=== PATIENT | female | born 1980 | race Caucasian/White ===

== ENCOUNTER 2019-09-26 06:51 | Emergency (ER) | payer SELFPAY ==
[2019-09-26] MEDS ORDERED: IPRATROPIUM/ALBUTEROL SULFATE 3 ML SOLUTION IH ONE (07:21)
[2019-09-26 07:59] LABS: BASOPHILS % (AUTO) 0.2 % (0.0-5.0); EOSINOPHILS % (AUTO) 3.6 % (0.0-8.0); LYMPHOCYTES % (AUTO) 41.8 % (21.0-51.0); MEAN CORPUSCULAR HEMOGLOBIN 23.9 pg (27.0-33.0); MEAN CORPUSCULAR VOLUME 77.1 fL (79-99); MONOCYTES % (AUTO) 7.6 % (3.0-13.0); NEUTROPHILS % (AUTO) 46.6 % (40.0-77.0); PLATELET COUNT (AUTO) 295 K/uL (130-400); RED BLOOD CELL COUNT(AUTO) 5.06 MIL/uL (4.00-5.50); RED CELL DISTRIBUTION WIDTH 15.2 % (11.0-15.5); WHITE BLOOD COUNT (AUTO) 8.1 K/uL (4.8-10.8)
[2019-09-26 08:10] LABS: CREATININE 0.8 mg/dL (0.5-1.5); POTASSIUM 3.7 mmol/L (3.5-5.1)
[2019-09-26 08:15] LABS: ALBUMIN 3.6 g/dL (3.5-5.0); BILIRUBIN,TOTAL 0.2 mg/dL (0.2-1.0)
[2019-09-26] MEDS ORDERED: METHYLPREDNISOLONE SOD SUCC 125MG/2ML VIAL ONE (08:41)
[2019-09-26] MEDS ORDERED: SODIUM CHLORIDE 0.9% 500ML 500 ML IV ONE (08:42)
== END 2019-09-26 09:06 | disposition home or self-care (01) ==
LOC: EDH 06:51
DX: J45.901 Unspecified asthma with (acute) exacerbation (principal); Z98.890 Other specified postprocedural states; Z72.0 Tobacco use
CPT/HCPCS: 36415; 71045; 80053; 84702; 85025; 94640; 96374; 99284; J2930; J7040

== ENCOUNTER 2025-01-08 09:40 | Emergency (ER) | payer SELFPAY ==
[~2025-01-08] VITALS: Ht 167.6 cm; Wt 84.8 kg
--- NOTE | 2025-01-08 09:47 | ERN ---
General Chief Complaint: Adult-Asthma Stated Complaint: ASTHMA ATTACK Time Seen by MD: 09:42 Source: patient History of Present Illness Initial Comments PATIENT IS A 44-YEAR-OLD FEMALE COMING IN COMPLAINING OF ASTHMA EXACERBATION. PATIENT STATES THAT SHE GETS FLARE-UPS EVERY THREE MONTHS. SHE HAS BEEN USING HER ALBUTEROL AND STATES SHE USED A SAMPLE OF ANOTHER MEDICATION SHE HAD BUT STATES THAT THE SYMPTOMS PROGRESSIVELY GOT WORSE. PATIENT IS ALSO COMPLAINING OF CHEST PRESSURE. Allergies: Coded Allergies: No Known Drug Allergies (Unverified Allergy, Unknown, 09/26/19) ROS Dictation CONSTITUTIONAL: NO CHILLS, NO FEVER, NO WEAKNESS, NO DIAPHORESIS, NO MALAISE. HEAD/FACE: NO SIGNS OF TRAUMA. EENT: NO EYE PAIN, NO BLURRED VISION, NO TEARING, NO DOUBLE VISION, NO EAR PAIN, NO EAR DISCHARGE, NO NOSE PAIN, NO NASAL CONGESTION, NO THROAT PAIN, NO THROAT SWELLING, NO MOUTH PAIN. RESPIRATORY: NO COUGH, NO ORTHOPNEA, SOB, NO STRIDOR, NO WHEEZING. CARDIOVASCULAR: CHEST PAIN, NO EDEMA, NO PALPITATIONS, NO SYNCOPE. GASTROINTESTINAL/ABDOMINAL: NO ABDOMINAL PAIN, NO CONSTIPATION, NO DIARRHEA, NO NAUSEA, NO VOMITING. GENITOURINARY: NO ABNORMAL DISCHARGE, NO DYSURIA, NO FREQUENT URINATION, NO HEMATURIA. NO COMPLAINTS OF PAIN IN THE GENITALS. MUSCULOSKELETAL: NO BACK PAIN, NO GOUT, NO JOINT PAIN, NO JOINT SWELLING, NO MUSCLE PAIN, NO MUSCLE STIFFNESS, NO NECK PAIN. INTEGUMENTARY: NO CHANGE IN COLOR, NO CHANGE IN HAIR/NAILS, NO DRYNESS, NO LESION, NO LUMPS, NO RASH. NEUROLOGICAL/PSYCH: NO ANXIETY, NOT DEPRESSED, NO EMOTIONAL PROBLEM, NO HEADACHE, NO NUMBNESS, NO PRE-EXISTING DEFICIT, NO HISTORY OF SEIZURES, NO TREMORS, NO WEAKNESS. HEMATOLOGIC/LYMPHATIC: NOT ANEMIC, NO HISTORY OF BLOOD CLOTS, NO APPARENT BLEEDING, NO BRUISING, GLANDS NOT SWOLLEN. ALL SYSTEMS NEGATIVE, EXCEPT NOTED. Physical Exam Physical Exam Dictation VITAL SIGNS: REVIEWED. GENERAL APPEARANCE: ALERT, ORIENTED X3, NO ACUTE DISTRESS, OBESE. HEAD AND FACE: NON-TRAUMATIC. EYES: PERRL, PINK CONJUNCTIVAS, EYELID NO TRAUMA, ANTERIOR CHAMBER CLEAR. EARS: PINNAS INTACT AND NO SIGNS OF TRAUMA OR ERYTHEMA. EAR CANALS CLEAR AND NO DISCHARGE. TMS NO ERYTHEMA. NOSE: NO DISCHARGE, NO BLEEDING. OROPHARYNX: MOUTH NORMAL, TEETH NO CARIES, TONGUE PINK. PHARYNX CLEAR, NO ERYTHEMA. TONSILS NO EXUDATES, NO ABSCESSES NOTED. MUCOUS MEMBRANE MOIST. NECK: SUPPLE, NON-TENDER, NO THYROMEGALY, NO MASSES, NO JVD, NO BRUITS. BREAST: DEFERRED. CHEST: NO TENDERNESS, NO CREPITUS, NO PARADOXICAL MOVEMENT, NO RETRACTIONS. LUNGS: CLEAR, WELL-VENTILATED, SYMMETRIC, NO RALES, NO WHEEZING, NO RHONCHI, NO STRIDOR, GOOD BREATH SOUNDS BILATERALLY. HEART: REGULAR RATE, REGULAR RHYTHM, NO MURMUR, NO GALLOPS. VASCULAR: NO PERIPHERAL EDEMA. ABDOMEN: SOFT, POSITIVE BOWEL SOUNDS, NONDISTENDED, NO GUARDING, NONTENDER, NO REBOUND, NO MASSES NO HEPATOMEGALY, NO SPLENOMEGALY, NO GUEVARA'S SIGN, NO HERNIAS. RECTAL: DEFERRED. GENITAL: DEFERRED. NEUROLOGICAL: NORMAL SPEECH, GROSS MOTOR FUNCTION INTACT, GROSS SENSORY FUNCTION INTACT. MUSCULOSKELETAL: NECK NONTENDER, FULL RANGE OF MOTION, BACK NONTENDER, FULL RANGE OF MOTION. EXTREMITIES: NONTENDER, FULL RANGE OF MOTION. SKIN: COLOR PINK, DRY, NO TURGOR, NO RASH, NO LACERATIONS, NO ABRASIONS, NO CONTUSIONS. LYMPHATICS: DEFERRED. Results Laboratory and Microbiology Lab and Micro Result Laboratory Tests Test 01/08/25 10:04 01/08/25 10:13 White Blood Count 7.8 K/uL (4.8-10.8) Red Blood Count 5.23 MIL/uL (4.00-5.50) Hemoglobin 12.0 g/dL (12.0-16.0) Hematocrit 39.8 % (36-48) Mean Corpuscular Volume 76.1 fL (79-99) L Mean Corpuscular Hemoglobin 22.9 pg (27.0-33.0) L Mean Corpuscular Hemoglobin Concent 30.2 g/dL (32.0-36.0) L Red Cell Distribution Width 15.1 % (11.0-15.5) Platelet Count 342 K/uL (130-400) Mean Platelet Volume 11.6 fL (7.5-10.5) H Immature Granulocyte % (Auto) 0.3 % (0-1) Neutrophils (%) (Auto) 55.4 % (40.0-77.0) Lymphocytes (%) (Auto) 29.1 % (21.0-51.0) Monocytes (%) (Auto) 9.1 % (3.0-13.0) Eosinophils (%) (Auto) 5.8 % (0.0-8.0) Basophils (%) (Auto) 0.3 % (0.0-5.0) Neutrophils # (Auto) 4.3 K/uL (1.8-7.7) Lymphocytes # (Auto) 2.3 K/uL (1.0-4.8) Monocytes # (Auto) 0.7 K/uL (0.1-1.0) Eosinophils # (Auto) 0.45 K/uL (0.00-0.70) Basophils # (Auto) 0.02 K/uL (0.00-0.20) Absolute Immature Granulocyte (auto 0.02 K/uL (0-1) Nucleated Red Blood Cells 0.0 % (0.0-0.19) Sodium Level 140 mmol/L (136-145) Potassium Level 4.0 mmol/L (3.5-5.1) Chloride Level 105 mmol/L (101-111) Carbon Dioxide Level 28 mmol/L (21-32) Blood Urea Nitrogen 9 mg/dL (7-18) Creatinine 0.6 mg/dL (0.5-1.0) Glomerular Filtration Rate Calc 114 mL/min (>90) Random Glucose 130 mg/dL (70-105) H Total Calcium 8.8 mg/dL (8.5-10.1) Magnesium Level 2.00 mg/dL (1.80-2.40) Troponin I High Sensitivity < 4 ng/L (4-50) L Urine Color LIGHT-YELLOW (YELLOW) Urine Appearance CLEAR (CLEAR) Urine pH 5.0 (5.0-8.0) Urine Specific [place] 1.029 (1.001-1.031) Urine Protein NEGATIVE mg/dL (NEGATIVE) Urine Glucose (UA) NEGATIVE mg/dL (NEGATIVE) Urine Ketones NEGATIVE mg/dL (NEGATIVE) Urine Occult Blood SMALL (NEGATIVE) H Urine Nitrate NEGATIVE (NEGATIVE) Urine Bilirubin NEGATIVE mg/dL (NEGATIVE) Urine Urobilinogen 0.2 mg/dL (0.2-1.0) Urine Leukocyte Esterase NEGATIVE Rukhsana/uL Urine RBC 0-1 /HPF (0-1) Urine WBC 0-1 /HPF (0-1) Urine Squamous Epithelial Cells FEW /HPF (0-2) Urine Bacteria None /HPF (None Seen) Urine HCG, Qualitative NEGATIVE (NEGATIVE) Labs Reviewed?: Yes EKG/XRAY/US/CT/MRI EKG Comment 01/08/2025 TIME 9:54 A.M. VENTRICULAR RATE 76 SINUS RHYTHM [address] WAVE ELEVATION OR DEPRESSION X-RAY Comment CHEST X-RAY-NAD MDM MDM: DIFFERENTIAL DIAGNOSIS: ASTHMA EXACERBATION, URI, RATIONALE: TESTS CONSIDERED AND ORDERED SECONDARY TO SHARED DECISION MAKING INCLUDE: PREVIOUS OUTSIDE RECORDS REVIEWED: OLD ER VISITS. RISK OF COMPLICATION AND/OR MORBIDITY OR MORTALITY OF PATIENT MANAGEMENT: NONE MEDICATIONS-PER MEDICATION RECONCILIATION NEED FOR HOSPITALIZATION: PATIENT DOES NOT MEET CRITERIA FOR HOSPITALIZATION. NEED FOR EMERGENCY MAJOR/MINOR SURGERY: NO PATIENT IS A 44-YEAR-OLD FEMALE COMING IN COMPLAINING OF CHEST TIGHTNESS AND SHORTNESS OF BREATH. SHE STATES THAT SHE DOES HAS A HISTORY OF ASTHMA.. LABORATORY WORKUP INCLUDING CHEST X-RAY WITHIN NORMAL LIMITS. PATIENT WILL BE DISCHARGED IN STABLE CONDITION WITH A DIAGNOSIS OF ASTHMA AND URI SYMPTOMS. ED Course Orders Procedure Category Date Status Time Cbc With Differential LAB 01/08/25 In Process 09:44 Chest 1vw RAD 01/08/25 Taken 09:44 12 Lead Ekg Tracing- EKG 01/08/25 Logged Technical 09:44 Magnesium LAB 01/08/25 Complete 09:44 ,Urine Test LAB 01/08/25 Complete 09:44 Troponin I High LAB 01/08/25 Complete Sensitivity 09:44 Urinalysis Profile LAB 01/08/25 Complete 09:44 Basic Metabolic Panel LAB 01/08/25 Complete 09:44 Methylprednisolone PHA 01/08/25 Complete Succ 125mg (Solu-Medr 11:00 Ipratropium/Albuterol PHA 01/08/25 Complete Neb (Duoneb) 11:00 Methylprednisolone PHA 01/08/25 Complete Succ 125mg (Solu-Medr 11:00 Current Medications Medications (Trade) Dose Ordered Sig/Esther Route PRN Reason Start Time Stop Time Status Last Admin Dose Admin Albuterol (DUOneb) 2 udvial ONCE ONCE IH 01/08/25 11:00 01/08/25 11:01 DC Methylprednisolone Sodium Succinate (Solu-medROL 125MG) 125 mg ONCE ONCE IM 01/08/25 11:00 01/08/25 10:59 DC Methylprednisolone Sodium Succinate (Solu-medROL 125MG) 125 mg ONCE ONCE IVP 01/08/25 11:00 01/08/25 11:01 DC Vital Signs Date Time Temp Pulse Resp B/P (MAP) Pulse Ox O2 Delivery O2 Flow Rate FiO2 01/08/25 09:42 97.9 88 14 145/94 98 Room Air* 0 21 01/08/25 09:41 97.9 88 20 145/94 99 Room Air DX & DISP Disposition: Discharge Departure Impression: Primary Impression: Asthma Additional Impression: URI (upper respiratory infection) Condition: Stable Additional Instructions: FOLLOW-UP WITH PRIMARY CARE PROVIDER IN 1 TO 2 DAYS. TAKE MEDICATIONS DIRECTED HERE IN THE EMERGENCY ROOM. OKAY TO CONTINUE HOME MEDICATIONS UNLESS OTHERWISE DISCUSSED DURING YOUR VISIT IN THE EMERGENCY ROOM TODAY. RETURN TO YOUR NEAREST EMERGENCY ROOM IF SYMPTOMS WORSEN OR IF THERE IS NO IMPROVEMENT. CALL 911 IF YOU NEED IMMEDIATE ASSISTANCE. TAKE TYLENOL [id number] NEEDED AND IF NO CONTRAINDICATIONS ARE PRESENT. INCREASE ORAL HYDRATION. A WOUND CULTURE OR URINE CULTURE WAS ORDERED HERE IN THE EMERGENCY ROOM DEPARTMENT PLEASE FOLLOW-UP WITH PRIMARY CARE PROVIDER AND ADVISE THEM TO GET REPORTS FROM OUR FACILITY. IF YOU HAD ANY IVÁN WRAP/SPLINTS THAT WERE APPLIED HERE, PLEASE DO NOT REMOVE THEM UNTIL YOU SEE YOUR PRIMARY CARE OR SPECIALTY. REFERRALS: Referrals: SELF,REFERRAL (PCP) CHARY HOWE MD Time of Disposition: 11:06 RAJ ZURITA MD Jan 08, 2025 09:47
[2025-01-08 10:08] LABS: IMMATURE GRANULOCYTE ABSOLUTE 0.02 K/uL (0-1); NUCLEATED RED BLOOD CELLS 0.0 % (0.0-0.19); PLATELET COUNT (AUTO) 342 K/uL (130-400); RED BLOOD CELL COUNT(AUTO) 5.23 MIL/uL (4.00-5.50); RED CELL DISTRIBUTION WIDTH 15.1 % (11.0-15.5); WHITE BLOOD COUNT (AUTO) 7.8 K/uL (4.8-10.8)
[2025-01-08 10:17] LABS: CREATININE 0.6 mg/dL (0.5-1.0); GLOMERULAR FILTR. RATE CALC 114.0 mL/min (>90); GLUCOSE,RANDOM 130.0 mg/dL (70-105); SODIUM SERUM 140.0 mmol/L (136-145); UREA NITROGEN, BLOOD 9.0 mg/dL (7-18)
[2025-01-08 10:29] LABS: APPEARANCE,URINE CLEAR (CLEAR); GLUCOSE, URINE (UA) NEGATIVE (NEGATIVE); LEUKOCYTE ESTERASE ,URINE NEGATIVE Leu/uL (NEGATIVE); NITRATE,URINE NEGATIVE (NEGATIVE); OCCULT BLOOD,URINE SMALL (NEGATIVE)
[2025-01-08 10:32] LABS: ADD UA MICROSCOPIC YES
[2025-01-08 10:35] LABS: HCG,QUALITATIVE URINE NEGATIVE (NEGATIVE)
[2025-01-08 10:39] LABS: SQUAMOUS EPITHELIAL CELL,UR FEW /HPF (0-2)
[2025-01-08 11:09] VITALS: PULSE 82; RESP 16
[2025-01-08 11:30] VITALS: BP 135/66; PULSE 71; RESP 12; TEMP 97.9; O2SAT 98
--- NOTE | 2025-01-08 11:59 | HMCIMG ---
CHEST 1VW REASON: CP COMPARISON: None. FINDINGS: Single view of the chest was obtained. Lungs are clear. Heart size is normal. There is no pulmonary vascular congestion. Mediastinum and bony thorax appear unremarkable. IMPRESSION: 1. Normal single view chest x-ray.
--- NOTE | 2025-01-08 12:17 | EKG ---
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
== END 2025-01-08 11:37 | disposition home or self-care (01) ==
LOC: EDH 09:40
DX: J45.901 Unspecified asthma with (acute) exacerbation (principal); J06.9 Acute upper respiratory infection, unspecified
CPT/HCPCS: 36415; 71045; 80048; 81001; 81025; 83735; 84484; 85025; 93005; 94640; 99285; J2919